=== PATIENT | female | born 1985 | race Caucasian/White ===

== ENCOUNTER 2017-11-15 10:26 | Emergency (ER) | payer OTHER ==
[~2017-11-15] VITALS: Ht 160 cm; Wt 61.4 kg
[2017-11-15] MEDS ORDERED: ALBUTEROL SULFATE 5 MG/ML 20 ML NEB SOLN [BULK] NEB ONE (11:15)
[2017-11-15] MEDS ORDERED: 0.9% SODIUM CHLORIDE 5 ML NEB SOLUTION NEB ONE (11:19)
[2017-11-15 11:21] LABS: INFLUENZA TYPE B NEGATIVE FOR TYPE B (NEGATIVE)
[2017-11-15] MEDS ORDERED: OSELTAMIVIR PHOSPHATE 75 MG CAPSULE PO ONE (12:45)
[2017-11-15 12:53] VITALS: BP 129/82
== END 2017-11-15 13:20 | disposition home or self-care (01) ==
LOC: EMS 10:27
DX: J11.1 Influenza due to unidentified influenza virus with other respiratory manifestations (principal); J20.9 Acute bronchitis, unspecified; J45.909 Unspecified asthma, uncomplicated
CPT/HCPCS: 87430; 87804; 94640; 99284; J7611

== ENCOUNTER 2017-11-15 14:06 | Emergency (ER) | payer OTHER ==
[~2017-11-15] VITALS: Ht 160 cm; Wt 61.4 kg
[2017-11-15] MEDS ORDERED: ONDANSETRON HCL 4 MG TABLET PO ONE (14:30)
[2017-11-15] MEDS ORDERED: IBUPROFEN 800 MG TABLET PO ONE (15:45)
[2017-11-15 16:27] VITALS: BP 129/74
== END 2017-11-15 16:51 | disposition home or self-care (01) ==
LOC: EMS 14:07
DX: R11.2 Nausea with vomiting, unspecified (principal); J45.909 Unspecified asthma, uncomplicated
CPT/HCPCS: 99283; Q0162

== ENCOUNTER 2017-11-16 12:14 | Emergency (ER) | payer OTHER ==
[~2017-11-16] VITALS: Ht 160 cm; Wt 56.8 kg
[2017-11-16 12:17] VITALS: BP 122/70
== END 2017-11-16 16:20 | disposition left against medical advice (07) ==
LOC: EMS 16:18
DX: Z76.0 Encounter for issue of repeat prescription (principal); J45.909 Unspecified asthma, uncomplicated; Z53.21 Procedure and treatment not carried out due to patient leaving prior to being seen by health care provider

== ENCOUNTER 2017-11-18 09:44 | Emergency (ER) | payer OTHER ==
[~2017-11-18] VITALS: Ht 160 cm; Wt 55.0 kg
[2017-11-18 11:25] VITALS: BP 125/62
== END 2017-11-18 11:28 | disposition home or self-care (01) ==
LOC: EMS 09:45
DX: Z76.0 Encounter for issue of repeat prescription (principal); J11.1 Influenza due to unidentified influenza virus with other respiratory manifestations; J45.909 Unspecified asthma, uncomplicated
CPT/HCPCS: 99283

== ENCOUNTER 2018-01-22 19:58 | Emergency (ER) | payer OTHER ==
[~2018-01-22] VITALS: Ht 162.6 cm; Wt 63.6 kg
[2018-01-22] MEDS ORDERED: ALBU8HFA4 IH (20:18)
[2018-01-22] MEDS ORDERED: BENZ-51 PO (20:18)
[2018-01-22] MEDS ORDERED: LORA10TA7 PO (20:18)
[2018-01-22] MEDS ORDERED: PSEU-191 PO (20:18)
[2018-01-22] MEDS ORDERED: 0.9% SODIUM CHLORIDE 5 ML NEB SOLUTION NEB ONE (21:28)
[2018-01-22] MEDS: ALBUTEROL SULFATE 2.5 MG/0.5 ML NEB SOLUTION NEB ONE (21:30)
[2018-01-22 21:40] VITALS: BP 137/74
== END 2018-01-22 22:28 | disposition home or self-care (01) ==
LOC: EMS 19:58
DX: J45.909 Unspecified asthma, uncomplicated (principal)
CPT/HCPCS: 71045; 94640; 99283; J7613

== ENCOUNTER 2018-07-12 16:08 | Emergency (ER) | payer OTHER ==
[~2018-07-12] VITALS: Ht 160 cm; Wt 54.5 kg
[~2018-07-12 16:08] MED LIST: ALBU8HFA4 IH; BENZ-51 PO; LORA10TA7 PO; PSEU-191 PO
[2018-07-12] MEDS ORDERED: CETI-290 PO (16:11)
[2018-07-12 16:12] VITALS: BP 127/72
== END 2018-07-12 17:03 | disposition left against medical advice (07) ==
LOC: EMS 16:09
DX: R53.1 Weakness (principal); R11.0 Nausea; J45.909 Unspecified asthma, uncomplicated; Z53.21 Procedure and treatment not carried out due to patient leaving prior to being seen by health care provider